=== PATIENT | male | born 1975 | race Caucasian/White ===

== ENCOUNTER → 2020-03-29 | Outpatient (CLI) | payer BC ==
--- NOTE | 2020-03-29 15:45 | XR ---
Left knee HISTORY: Pain 3 views left knee Suprapatellar increased density present. Bone mineralization, joint spaces and alignment are maintain ed. No fracture or dislocation. Enthesophyte present at the insertion of the quadriceps tendon. IMPRESSION: Left knee effusion.
== END | disposition home or self-care (01) ==
LOC: RADXRYALE 10:19
PROVIDERS: ATTEND Physician Assistant Medical
DX: M25.462 Effusion, left knee (principal)

== ENCOUNTER 2020-12-29 09:41 | Emergency (ER) | payer BC ==
[2020-12-29 09:49] VITALS: BP 135/90; PULSE 116; RESP 18; TEMP 99
[2020-12-29] MEDS ORDERED: KETOROLAC 15 MG/ML 1 ML VIAL IM STA (09:56)
--- NOTE | 2020-12-29 10:54 | ED ---
Headache HPI - General Chief Complaint: Headache Stated Complaint: headache Time Seen by Provider: 12/29/20 09:52 Source: RN notes reviewed Mode of arrival: ambulatory Limitations: no limitations - History of Present Illness Initial Comments: Patient is a 45-year-old male that presents to emergency room complaining of headache. He notes he is concern for Covid as his father just from the hospital yesterday. Patient notes that he did have one negative test but that was about a week ago. Patient was otherwise well-appearing. He notes that his headache is more in the back of his neck and forehead. He denied any other issues or complaints. He was otherwise well-appearing. He denied chest pain shortness of breath nausea vomiting diarrhea constipation fever fatigue chills. - Related Data Allergies Allergy/AdvReac Type Severity Reaction Status Date / Time No Known Allergies Allergy Verified 12/29/20 09:44 Review of Systems ROS Statement: Those systems with pertinent positive or pertinent negative responses have been documented in the HPI. ROS Other: All systems not noted in ROS Statement are negative. Past Medical History Past Medical History: No Reported History History of Any Multi-Drug Resistant Organisms: None Reported Past Surgical History: Orthopedic Surgery Additional Past Surgical History / Comment(s): Analilia melgar Past Psychological History: No Psychological Hx Reported Smoking Status: Former smoker Past Alcohol Use History: Occasional Past Drug Use History: None Reported General Exam Limitations: no limitations General appearance: alert, in no apparent distress Head exam: Present: atraumatic, normocephalic, normal inspection Eye exam: Present: normal appearance, PERRL, EOMI. Absent: scleral icterus, conjunctival injection, periorbital swelling ENT exam: Present: normal exam, mucous membranes moist Neck exam: Present: normal inspection Respiratory exam: Present: normal lung sounds bilaterally. Absent: respiratory distress, wheezes, rales, rhonchi, stridor Cardiovascular Exam: Present: regular rate, normal rhythm, normal heart sounds. Absent: systolic murmur, diastolic murmur, rubs, gallop, clicks Extremities exam: Present: normal inspection, full ROM, normal capillary refill. Absent: tenderness, pedal edema, joint swelling, calf tenderness Neurological exam: Present: alert, oriented X3 Psychiatric exam: Present: normal affect, normal mood Skin exam: Present: warm, dry, intact, normal color. Absent: rash Course Vital Signs 12/29/20 09:45 Temperature 99 F Pulse Rate 116 H Respiratory 18 Rate Blood Pressure 135/90 O2 Sat by Pulse 95 Oximetry Medical Decision Making - Medical Decision Making 45-year-old male complaining of headache and possible Covid. Covid test, 15 mg of Toradol ordered. Given patient's clinical signs symptoms most likely has a tension headache. Covid test positive. Patient wishes to undergo monoclonal antibody infusion. Patient discharge home after medication. Case discussed with Dr. Grace, patient discharge home. - Lab Data Lab Results 12/29/20 Range/Units 10:31 Coronavirus (PCR) Detected A (Not Detectd) Disposition Clinical Impression: Headache, COVID Disposition: HOME SELF-CARE Condition: Stable Instructions (If sedation given, give patient instructions): Coronavirus Disease 2019 (COVID-19) Additional Instructions: Please return to the Emergency Department if symptoms worsen or any other concerns. Follow-up with primary care 1-2 days. Take Tylenol Motrin every 3 hours as needed for headache. Quarantine per CDC guidelines. Is patient prescribed a controlled substance at d/c from ED?: No Referrals: Guido Luna DO [Primary Care Provider] - 1-2 days Time of Disposition: 10:54
[2020-12-29] MEDS ORDERED: CASIRIVIMAB (REGN10933) (EUA) 600 MG, IMDEVIMAB (REGN10987) (EUA) 600 MG in SODIUM CHLO... IVPB ONE (12:00)
[2020-12-29] MEDS ORDERED: SODIUM CHLORIDE 0.9% 50 ML IVPB ONE (12:30)
== END 2020-12-29 13:09 | disposition home or self-care (01) ==
LOC: EC 09:41
DX: U07.1 COVID-19 (principal); Z87.891 Personal history of nicotine dependence
CPT/HCPCS: 99284; 96365; 96372; 87635; J1885; Q0243

== ENCOUNTER → 2021-05-29 | Day surgery (SDC) | payer BC ==
[2021-05-25 15:55] VITALS: BMI 30.4
[~2021-05-29] MED LIST: LACTATED RINGERS 1,000 ML IV SCH; PROPOFOL 10 MG/ML 20 ML VIAL IV ONE
[2021-05-29 09:00] VITALS: TEMP 97.2
--- NOTE | 2021-05-29 09:54 | P.PCN ---
Date of Procedure: 05/29/21 Procedure(s) Performed: BRIEF HISTORY: Patient is a 45-year-old pleasant white male scheduled for an elective colonoscopy as a part of value should of intermittent rectal bleeding PROCEDURE PERFORMED: Colonoscopy. PREOPERATIVE DIAGNOSIS: .Intermittent rectal bleeding. IV sedation per Anesthesia. PROCEDURE: After informed consent was obtained, the patient, was brought into the endoscopy unit. IV sedation was administered by Anesthesia under continuous monitoring. Digital rectal examination was normal. Initially the Olympus CF-160 flexible video colonoscope was then inserted in the rectum, gradually advanced into the cecum without any difficulty. Careful examination was performed as the scope was gradually being withdrawn. Ileocecal valve and the appendiceal orifice were visualized and appeared normal. Prep was excellent. Mucosa of the cecum, ascending colon, transverse colon, descending colon, sigmoid colon, and rectum appeared normal. Retroflexion was performed in the rectum and small internal hemorrhoids were seen. The patient tolerated the procedure well. IMPRESSION: Normal-appearing colon from rectum to cecum with no evidence of colorectal neoplasia. Small internal hemorrhoids RECOMMENDATIONS: Findings of this examination were discussed with the patient as well as his family. He was advised to be a high-fiber diet and take fiber supplements a regular basis. Recommend repeat colonoscopy in 10 years..
[2021-05-29 09:59] VITALS: RESP 17
[2021-05-29 10:16] VITALS: BP 150/85; PULSE 79
== END ==
LOC: ORWHC2ENDO 08:32
PROVIDERS: ATTEND Internal Medicine Gastroenterology
DX: K64.8 Other hemorrhoids (principal); K62.5 Hemorrhage of anus and rectum; Z98.890 Other specified postprocedural states
CPT/HCPCS: 45378; J2704